=== PATIENT | male | born 1985 ===

== ENCOUNTER 2024-11-15 03:06 | Emergency (ER) | payer MEDICAID ==
[~2024-11-15] VITALS: Ht 170.2 cm; Wt 84.1 kg
[2024-11-15 03:10] VITALS: TEMP 97.7
[2024-11-15] MEDS: TraMADol HCL 50 MG TABLET PO ONE (04:32)
[2024-11-15 05:09] VITALS: BP 129/77; PULSE 76; RESP 16; O2SAT 98
== END 2024-11-15 05:51 | disposition home or self-care (01) ==
LOC: EMS 03:12
DX: S69.81XA Other specified injuries of right wrist, hand and finger(s), initial encounter (principal); F12.90 Cannabis use, unspecified, uncomplicated; F17.210 Nicotine dependence, cigarettes, uncomplicated; X50.1XXA Overexertion from prolonged static or awkward postures, initial encounter; Y93.89 Activity, other specified; Y92.89 Other specified places as the place of occurrence of the external cause; Y99.8 Other external cause status
CPT/HCPCS: 99284; 73110-TC; 73130-TC; Z7502; Z7610